=== PATIENT | male | born 1980 | race Asian ===

== ENCOUNTER → 2018-11-07 | Outpatient (CLI) | payer MEDICARE ==
[~2018-11-07] MED LIST: GADOBUTROL 7.5 MMOL/7.5 ML PFS ONE
== END | disposition home or self-care (01) ==
LOC: CFH 08:33
PROVIDERS: ATTEND Psychiatry & Neurology Neurology
DX: S32.028A Other fracture of second lumbar vertebra, initial encounter for closed fracture (principal); R90.82 White matter disease, unspecified; R20.2 Paresthesia of skin; X58.XXXA Exposure to other specified factors, initial encounter; Y93.89 Activity, other specified; Y92.89 Other specified places as the place of occurrence of the external cause; Y99.8 Other external cause status
CPT/HCPCS: 70553; 72156; 72157; A9585